=== PATIENT | male | born 1965 | race Two or more races ===

== ENCOUNTER 2018-04-23 22:56 | Emergency (ER) | payer SELFPAY ==
[~2018-04-23] VITALS: Ht 177.8 cm; Wt 73.0 kg
[2018-04-24 00:15] LABS: CLARITY URINE CLEAR (CLEAR); COLOR URINE YELLOW (YELLOW); KETONES URINE NEGATIVE (NEGATIVE); LEUKOCYTE ESTERASE URINE TRACE (NEGATIVE); NITRITE URINE NEGATIVE (NEGATIVE); OCCULT BLOOD URINE NEGATIVE (NEGATIVE); PH URINE 7.5 (4.5-8.0); PROTEIN URINE NEGATIVE (NEGATIVE); SPECIFIC GRAVITY URINE 1.012 (1.005-1.030)
[2018-04-24 00:34] LABS: *BENZODIAZEPINES SCREEN URINE NEGATIVE (NEGATIVE); *COCAINE SCREEN URINE PRESUMTIVE POSITIVE (NEGATIVE)
[2018-04-24 00:35] LABS: *AMPHETAMINES SCREEN URINE NEGATIVE (NEGATIVE); *BARBITURATES SCREEN URINE NEGATIVE (NEGATIVE); CANNABINOID URINE SCREEN NEGATIVE (NEGATIVE); METHADONE URINE SCREEN NEGATIVE (NEGATIVE); OPIATES URINE SCREEN NEGATIVE (NEGATIVE); PHENCYCLIDINE URINE SCREEN NEGATIVE (NEGATIVE)
[2018-04-24 00:52] LABS: BASOPHILS % 0.3 % (0.0-2.0); EOSINOPHILS % 0.2 % (0.0-5.0); HEMATOCRIT. 39.3 % (42.0-52.0); HEMOGLOBIN. 13.2 g/dL (14.0-18.0); LYMPHOCYTES % 10.7 % (20.0-50.0); MEAN CORPUSCULAR HEMOGLOBIN 32.3 pg (28.0-32.0); MEAN CORPUSCULAR VOLUME 96.4 fL (80.0-94.0); MONOCYTES % 7.4 % (2.0-8.0); NEUTROPHILS % 81.4 % (40.0-76.0); PLATELET 699 x1000/uL (130-400); RED BLOOD CELL COUNT 4.08 mill/uL (4.7-6.1); RED CELL DISTRIBUTION WIDTH 13.9 % (11.6-14.6)
[2018-04-24 00:55] LABS: CHLORIDE 100 mEq/L (98-107)
[2018-04-24 00:59] LABS: ETHANOL BLOOD < 10 mg/dL
[2018-04-24 08:00] VITALS: BP 101/56
== END 2018-04-24 08:30 | disposition left against medical advice (07) ==
LOC: ER 22:56
DX: R45.851 Suicidal ideations (principal)
CPT/HCPCS: 36415; 80305; 80307; 80329; 93005; 99284

== ENCOUNTER 2019-10-18 10:52 | Emergency (ER) | payer MEDICAID, OTHER ==
[~2019-10-18] VITALS: Ht 177.8 cm; Wt 68.0 kg
[2019-10-18 11:07] VITALS: BP 97/62
[2019-10-18] MEDS ORDERED: IBUPROFEN 400MG TABLET PO ONE (11:45)
== END 2019-10-18 19:31 | disposition home or self-care (01) ==
LOC: ER 10:52
DX: S50.01XA Contusion of right elbow, initial encounter (principal); Y04.0XXA Assault by unarmed brawl or fight, initial encounter; Y93.89 Activity, other specified; Y92.89 Other specified places as the place of occurrence of the external cause; Z59.0 Homelessness; F17.210 Nicotine dependence, cigarettes, uncomplicated; Z71.6 Tobacco abuse counseling
CPT/HCPCS: 73080; 99283; 99406

== ENCOUNTER 2019-11-24 12:38 | Emergency (ER) | payer MEDICAID ==
[~2019-11-24] VITALS: Ht 177.8 cm; Wt 68.4 kg
[2019-11-24] MEDS ORDERED: MORPHINE SULFATE 4 MG/ML CPJ (NOT FOR IM USE) IV STA (12:56)
[2019-11-24 13:26] LABS: BASOPHILS % 0.6 % (0.0-2.0); EOSINOPHILS % 2.8 % (0.0-5.0); HEMATOCRIT. 45.7 % (42.0-52.0); HEMOGLOBIN. 15.5 g/dL (14.0-18.0); LYMPHOCYTES % 43.6 % (20.0-50.0); MEAN CORPUSCULAR HEMOGLOBIN 33.4 pg (28.0-32.0); MEAN CORPUSCULAR VOLUME 98.4 fL (80.0-94.0); MEAN PLATELET VOLUME 7.8 fl (7.4-10.4); MONOCYTES % 11.8 % (2.0-8.0); NEUTROPHILS % 41.2 % (40.0-76.0); PLATELET 214 x1000/uL (130-400); RED BLOOD CELL COUNT 4.65 mill/uL (4.7-6.1); RED CELL DISTRIBUTION WIDTH 14.2 % (11.6-14.6)
[2019-11-24 13:28] LABS: CHLORIDE 107 mEq/L (98-107)
[2019-11-24 14:50] VITALS: BP 115/75
== END 2019-11-24 14:51 | disposition left against medical advice (07) ==
LOC: ER 12:38
DX: R07.89 Other chest pain (principal); F14.10 Cocaine abuse, uncomplicated; F17.200 Nicotine dependence, unspecified, uncomplicated
CPT/HCPCS: 36415; 71045; 80053; 83880; 84484; 85025; 93005; 99285; J2270

== ENCOUNTER 2020-10-14 12:34 | Emergency (ER) | payer MEDICAID ==
[~2020-10-14] VITALS: Ht 177.8 cm; Wt 68.0 kg
[2020-10-14] MEDS ORDERED: BACITRACIN ZINC OINT UDPKT TOP ONE (16:45)
[2020-10-14] MEDS ORDERED: IBUPROFEN 600MG TABLET PO ONE (16:45)
[2020-10-14] MEDS ORDERED: TETANUS, DIPHTHERIA, PERTUSSIS VAC/PF 0.5ML (>7YR OLD) IM ONE (16:45)
[2020-10-14] MEDS ORDERED: BO1 TP (17:04)
[2020-10-14] MEDS ORDERED: IBUP-2029 MT (17:04)
[2020-10-14 17:09] VITALS: BP 111/67
== END 2020-10-14 17:19 | disposition home or self-care (01) ==
LOC: ER 12:51
DX: S00.81XA Abrasion of other part of head, initial encounter (principal); S60.512A Abrasion of left hand, initial encounter; M25.512 Pain in left shoulder; W01.0XXA Fall on same level from slipping, tripping and stumbling without subsequent striking against object, initial encounter; Y93.89 Activity, other specified; Y92.488 Other paved roadways as the place of occurrence of the external cause
CPT/HCPCS: 29105; 73030; 73130; 99284

== ENCOUNTER 2021-04-17 21:25 | Emergency (ER) | payer MEDICAID ==
[~2021-04-17] VITALS: Ht 172.7 cm; Wt 79.0 kg
[~2021-04-17 21:25] MED LIST: BO1 TP; IBUP-2029 MT
[2021-04-17] MEDS: HYDROCODONE/ACETAMINOPHEN 5/325MG TABLET PO ONE (22:15)
[2021-04-18] MEDS ORDERED: HYDR-4001 MT (00:40)
[2021-04-18 01:06] VITALS: BP 118/76
== END 2021-04-18 01:08 | disposition home or self-care (01) ==
LOC: ER 21:25
DX: S62.302A Unspecified fracture of third metacarpal bone, right hand, initial encounter for closed fracture (principal); F14.10 Cocaine abuse, uncomplicated; F17.290 Nicotine dependence, other tobacco product, uncomplicated; X58.XXXA Exposure to other specified factors, initial encounter; Y93.89 Activity, other specified; Y92.89 Other specified places as the place of occurrence of the external cause; Y99.8 Other external cause status
CPT/HCPCS: 29125; 73110; 73130; 99284; 99406

== ENCOUNTER 2023-11-17 19:38 | Emergency (ER) | payer MEDICAID, OTHER ==
[~2023-11-17] VITALS: Ht 177.8 cm; Wt 69.0 kg
[~2023-11-17 19:38] MED LIST changes: +HYDR-4001 MT
[2023-11-17 19:53] VITALS: O2SAT 98
[2023-11-17 19:57] VITALS: BP 139/83; PULSE 76; RESP 18; TEMP 98.2; O2SAT 98
[2023-11-17] MEDS ORDERED: HYDROCODONE/ACETAMINOPHEN 5/325MG TABLET PO ONE (22:15)
== END 2023-11-17 23:58 | disposition left against medical advice (07) ==
LOC: ER 19:38
DX: S09.90XA Unspecified injury of head, initial encounter (principal); M54.2 Cervicalgia; F14.10 Cocaine abuse, uncomplicated; V49.59XA Passenger injured in collision with other motor vehicles in traffic accident, initial encounter; Y93.89 Activity, other specified; Y92.89 Other specified places as the place of occurrence of the external cause; Y99.8 Other external cause status
CPT/HCPCS: 99281

== ENCOUNTER 2024-08-18 12:31 | Emergency (ER) | payer MEDICAID ==
[~2024-08-18] VITALS: Ht 177.8 cm; Wt 69.0 kg
[2024-08-18 12:32] VITALS: O2SAT 98
[2024-08-18] MEDS: ACETAMINOPHEN 325MG TABLET PO ONE (13:31)
[2024-08-18] MEDS ORDERED: ACET-2708 MT (13:58)
[2024-08-18 15:21] VITALS: BP 119/82; PULSE 88; RESP 16; TEMP 36.8; O2SAT 98
== END 2024-08-18 15:23 | disposition home or self-care (01) ==
LOC: ER 12:31
DX: M25.572 Pain in left ankle and joints of left foot (principal); F14.10 Cocaine abuse, uncomplicated; Z79.899 Other long term (current) drug therapy; W18.30XA Fall on same level, unspecified, initial encounter; Y93.89 Activity, other specified; Y92.89 Other specified places as the place of occurrence of the external cause; Y99.8 Other external cause status
CPT/HCPCS: 99283; 73610; A6449